=== PATIENT | male | born 1990 | race Caucasian/White ===

== ENCOUNTER 2018-09-24 22:20 | Emergency (ER) | payer SELFPAY ==
[2018-09-24] MEDS ORDERED: DIAZEPAM INJ 10 MG/2 ML DISP.SYRIN IV ONE (23:29)
[2018-09-24] MEDS ORDERED: THIAMINE HCL 100 MG, FOLIC ACID 1 MG in NORMAL SALINE 250 ML IV ONE (23:29)
[2018-09-24] MEDS ORDERED: THIAMINE HCL INJ 200 MG/2 ML VIAL ONE (23:34)
--- NOTE | 2018-09-24 23:35 | ER Document Report ---
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 Patient states that he had a seizure yesterday. He admits to drinking half a gallon of vodka per day. He states he has been doing this for several years. He denies suicidal or homicidal ID that he is severely depressed. He does have a and daughter and states "I am a piece that should and I need help for I am going to lose everything." Patient states that his last alcohol consumption was 8 hours prior to arrival. He denies any headache, nausea, vomiting, chest pain, shortness of breath, abdominal pain. TRAVEL OUTSIDE OF THE [place] IN LAST 30 DAYS: No - HPI Onset: Other Quality of pain: No pain Associated symptoms: denies: Chest pain, Diarrhea, Headache, Nausea, Vomiting, Shortness of breath, Sweating Exacerbated by: Denies Relieved by: Denies Similar symptoms previously: Yes Recently seen / treated by doctor: Yes - Related Data Allergies/Adverse Reactions: No Known Allergies Allergy (Verified 09/24/18 23:21) Home Medications: Ativan. Neurontin. Keppra Past Medical History - General Information source: Patient, Emergency [facility] Personnel, [facility] Records - Social History Smoking Status: Unknown if Ever Smoked Chew tobacco use (# tins/day): No Frequency of alcohol use: Heavy Drug Abuse: None, Prescription drugs Lives with: Family Family History: Reviewed & Not Pertinent Patient has suicidal ideation: No Patient has homicidal ideation: No - Medical History Medical History: Other - Alcoholism Neurological Medical History: Reports: Hx Seizures - with detox Renal/ Medical History: Denies: Hx Peritoneal Dialysis Review of Systems - Review of Systems Notes: REVIEW OF SYSTEMS: CONSTITUTIONAL : Denies fever, chills, or sweats. Denies recent illness. Denies weight loss, recent hospitalizations. EENT: Denies visual changes, eye pain. Denies sore throat, oral lesions, difficulty swallowing. CARDIOVASCULAR: Denies chest pain. Denies palpitations. Denies lower extremity edema. RESPIRATORY: Denies cough. Denies shortness of breath, wheezing. GASTROINTESTINAL: Denies abdominal pain or distention. Denies nausea, vomiting , or diarrhea. Denies blood in vomitus, stools, or per rectum. Denies black, tarry stools. Denies constipation. GENITOURINARY: Denies difficulty urinating, painful urination, frequency, blood in urine, testicular pain or penile discharge. MUSCULOSKELETAL: Denies back or neck pain or stiffness. Denies joint pain or swelling. SKIN: Denies rash, lesions or sores. HEMATOLOGIC : Denies easy bruising or bleeding. LYMPHATIC: Denies swollen glands. NEUROLOGICAL: Denies confusion or altered mental status. Denies loss of consciousness. Denies dizziness or lightheadedness. Denies headache. Denies weakness or paralysis. Denies problems difficulty with ambulation, slurred speech. Denies sensory loss, numbness, or tingling. Denies seizures. PSYCHIATRIC: Denies suicidal ideation, or homicidal ideation Physical Exam - Vital signs Vitals: Temp Pulse Resp BP Pulse Ox 98.5 F 110 H 20 128/63 H 98 09/24/18 22:31 09/24/18 22:31 09/24/18 22:31 09/24/18 22:31 09/24/18 22:31 - Notes Notes: PHYSICAL EXAMINATION: GENERAL: Well-appearing, well-nourished and in no acute distress. HEAD: Atraumatic, normocephalic. EYES: Pupils equal round and reactive to light, extraocular movements intact, sclera anicteric, conjunctiva are normal. ENT: Nares patent, oropharynx clear without exudates. Moist mucous membranes. NECK: Normal range of motion, supple without lymphadenopathy LUNGS: Breath sounds clear to auscultation bilaterally and equal. No wheezes rales or rhonchi. HEART: Tachycardic, regular rhythm. ABDOMEN: Soft, nontender, nondistended abdomen. No guarding, no rebound. No masses appreciated. Musculoskeletal: Normal range of motion, no pitting or edema. No cyanosis. NEUROLOGICAL: Cranial nerves grossly intact. Normal speech, normal gait. Normal sensory, motor exams. AAO x3 PSYCH: Cooperative, tearful, denies suicidal, homicidal ideation. SKIN: Warm, Dry, normal turgor, no rashes or lesions noted. Course - Re-evaluation Re-evalutation: 09/25/18 02:02 Laboratory 09/24/18 09/24/18 23:50 23:50 WBC 7.9 RBC 4.99 Hgb 15.7 Hct 45.2 MCV 91 MCH 31.5 MCHC 34.8 RDW 13.3 Plt Count 306 Seg Neutrophils % 50.2 Lymphocytes % 42.1 Monocytes % 6.0 Eosinophils % 1.1 Basophils % 0.6 Absolute Neutrophils 4.0 Absolute Lymphocytes 3.3 Absolute Monocytes 0.5 Absolute Eosinophils 0.1 Absolute Basophils 0.0 Sodium 145.2 H Potassium 3.6 Chloride 106 Carbon Dioxide 26 Anion Gap 13 BUN 5 L Creatinine 0.85 Est GFR ( Amer) > 60 Est GFR (Non-Af Amer) > 60 Glucose 139 H Calcium 8.0 L Total Bilirubin 0.9 Direct Bilirubin 0.3 Neonat Total Bilirubin Not Reportable Neonat Direct Bilirubin Not Reportable Neonat Indirect Bili Not Reportable AST 27 ALT 17 L Alkaline Phosphatase 73 Total Protein 6.6 Albumin 4.0 Salicylates < 1.0 L Acetaminophen < 10 L Serum Alcohol 268 Temp Pulse Resp BP Pulse Ox 98.5 F 88 20 128/83 H 97 09/24/18 23:03 09/24/18 23:03 09/24/18 23:03 09/24/18 23:03 09/24/18 23:03 28-year-old male with alcoholism, history of alcohol withdrawal seizures presents intoxicated via EMS 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 Patient states that he had a seizure yesterday. He admits to drinking half a gallon of vodka per day. He states he has been doing this for several years. He denies suicidal or homicidal ID that he is severely depressed. He does have a and daughter and states "I am a piece that shit and I need help for I am going to lose everything." Patient states that his last alcohol consumption was 8 hours prior to arrival. Upon arrival vitals were reviewed and within normal limits. Patient is afebrile, normotensive, not hypoxic or tachycardic. Patient is alert, awake, cooperative. No significant laboratory findings except for an alcohol level of 268. Patient did receive IV fluids, thiamine, folic acid, Valium. Patient will be medically cleared for psych evaluation at 7 AM. 09/25/18 04:00 - Vital Signs Vital signs: Temp Pulse Resp BP Pulse Ox 98.5 F 88 20 128/83 H 97 09/24/18 23:03 09/24/18 23:03 09/24/18 23:03 09/24/18 23:03 09/24/18 23:03 - Laboratory Result Diagrams: 09/24/18 23:50 09/24/18 23:50 Laboratory results interpreted by me: 09/24/18 23:50 Sodium 145.2 H BUN 5 L Glucose 139 H Calcium 8.0 L ALT 17 L Salicylates < 1.0 L Acetaminophen < 10 L - EKG Interpretation by Me EKG shows normal: Sinus rhythm Rate: Normal Rhythm: NSR When compared to previous EKG there are: Previous EKG unavailable Discharge - Discharge Clinical Impression: Alcoholism Depression Qualifiers: Depression Type: unspecified Qualified Code(s): F32.9 - Major depressive disorder, single episode, unspecified Condition: Good Instructions: Chronic Alcoholism ([facility]), Depression ([facility]) Forms: Elevated Blood Pressure
[2018-09-24] MEDS ORDERED: FOLIC ACID INJ 5 MG/1 ML 10 ML VIAL ONE (23:36)
[2018-09-25 00:05] LABS: ABSOLUTE EOSINOPHILS # (AUTO) 0.1 10^3/uL (0.0-0.6); ABSOLUTE LYMPHOCYTES (AUTO) 3.3 10^3/uL (0.5-4.7); ABSOLUTE MONOCYTES (AUTO) 0.5 10^3/uL (0.1-1.4); BASOPHILS % (AUTO) 0.6 % (0-2); EOSINOPHILS % (AUTO) 1.1 % (0-6); HEMATOCRIT 45.2 % (37.9-51.0); HEMOGLOBIN 15.7 g/dL (13.5-17.0); LYMPHOCYTES % (AUTO) 42.1 % (13-45); MEAN CORPUSCULAR HEMOGLOBIN 31.5 pg (27.0-33.4); MEAN CORPUSCULAR HGB CONC 34.8 g/dL (32.0-36.0); MEAN CORPUSCULAR VOLUME 91 fl (80-97); PLATELET COUNT 306 10^3/uL (150-450); RED BLOOD COUNT 4.99 10^6/uL (4.35-5.55); RED CELL DISTRIBUTION WIDTH 13.3 % (11.5-14.0); SEGMENTED NEUTROPHILS % (AUTO) 50.2 % (42-78); TOTAL CELLS COUNTED % (AUTO) 100 %; WHITE BLOOD COUNT 7.9 10^3/uL (4.0-10.5)
[2018-09-25 00:29] LABS: ALANINE AMINOTRANSFERASE 17 U/L (21-72); ALCOHOL 268 mg/dL (NONE DETECTED); ALKALINE PHOSPHATASE 73 U/L (38-126); ANION GAP 13 (5-19); ASPARTATE AMINO TRANSFERASE 27 U/L (17-59); BILIRUBIN,DIRECT 0.3 mg/dL (0.0-0.4); BILIRUBIN,TOTAL 0.9 mg/dL (0.2-1.3); BLOOD UREA NITROGEN 5 mg/dL (7-20); CARBON DIOXIDE 26 mmol/L (22-30); CHLORIDE 106 mmol/L (98-107); GLUCOSE 139 mg/dL (75-110); POTASSIUM 3.6 mmol/L (3.6-5.0); SODIUM 145.2 mmol/L (137-145); TOTAL PROTEIN 6.6 g/dL (6.3-8.2)
[2018-09-25] MEDS: DIAZEPAM INJ 10 MG/2 ML DISP.SYRIN IV SCH ×3 (00:30→07:56)
[2018-09-25 00:31] LABS: ACETAMINOPHEN < 10 ug/mL (10-30); SALICYLATE < 1.0 mg/dL (2.0-20.0)
[2018-09-25 06:14] LABS: APPEARANCE,URINE CLEAR; BILIRUBIN,URINE NEGATIVE (NEGATIVE); COLOR,URINE YELLOW; GLUCOSE, URINE NEGATIVE (NEGATIVE); KETONES,URINE NEGATIVE (NEGATIVE); LEUKOCYTE ESTERASE,URINE NEGATIVE (NEGATIVE); NITRITE,URINE NEGATIVE (NEGATIVE); PROTEIN,URINE NEGATIVE (NEGATIVE); URINE SPECIFIC GRAVITY 1.012
[2018-09-25 06:29] LABS: URINE AMPHETAMINES SCREEN NEGATIVE; URINE BARBITURATES SCREEN NEGATIVE; URINE BENZODIAZEPINES SCREEN UNCONFIRMED POSITIVE; URINE COCAINE SCREEN NEGATIVE; URINE MARIJUANA (THC) SCREEN NEGATIVE; URINE METHADONE SCREEN NEGATIVE; URINE PHENCYCLIDINE SCREEN NEGATIVE
[2018-09-25 07:58] VITALS: BP 115/60
--- NOTE | 2018-09-25 13:04 | EKG REPORT ---
SEVERITY:- NORMAL ECG - SINUS RHYTHM : Confirmed by: Marcella Acosta MD 25-Sep-2018 13:04:16
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
== END 2018-09-25 08:07 | disposition home or self-care (01) ==
LOC: ER 22:20
DX: F10.229 Alcohol dependence with intoxication, unspecified (principal); F32.9 Major depressive disorder, single episode, unspecified
CPT/HCPCS: 93005; 96376; 99285; 96375; 96365; 36415; 80307 ×4; 85025; 80053; 81001; 93010; J3360 ×2; J3490; J3411; J7050